=== PATIENT | male | born 1935 | race Caucasian/White ===

== ENCOUNTER → 2016-08-02 | Outpatient (CLI) | payer MEDICARE ==
[~2016-08-02] MED LIST: AGGRENOX 25 MG1 EACH PO; LIPITOR TAB 2020 MG PO; LISINOPRIL20 MG PO; PRILOSEC OTC20 MG PO
== END ==
LOC: CT 14:12
DX: I65.23 Occlusion and stenosis of bilateral carotid arteries (principal); I63.9 Cerebral infarction, unspecified; J43.9 Emphysema, unspecified; M47.892 Other spondylosis, cervical region; M99.71 Connective tissue and disc stenosis of intervertebral foramina of cervical region; I65.22 Occlusion and stenosis of left carotid artery; I65.01 Occlusion and stenosis of right vertebral artery
CPT/HCPCS: 36415; 70496; 70498; 82565; 84520; J7050; Q9963